=== PATIENT | male | born 1965 | race Caucasian/White ===

== ENCOUNTER 2017-11-09 14:53 | Outpatient (REF) | payer BC, SELFPAY ==
[2017-11-09 21:35] LABS: ALT 62 U/L (12-78); AST 57 U/L (15-37); Albumin 4.2 g/dL (3.4-5.0); Alkaline Phosphatase 119 U/L (46-116); Anion Gap 14.1 mmol/L (3-11); BUN 9 mg/dL (7-18); Bilirubin, Total 0.5 mg/dL (0.2-1.0); CO2 24.9 mmol/L (21.0-32.0); CREATININE 1.16 mg/dL (0.70-1.30); Calcium 8.6 mg/dL (8.5-10.1); Chloride 93 mmol/L (98-107); Glucose 96 mg/dL (70-100); Sodium 132 mmol/L (136-145); Total Protein 7.8 g/dL (6.4-8.2)
== END 2017-11-09 14:54 ==
LOC: NCHCN 14:53
PROVIDERS: PCP Nurse Practitioner Family; Visit Provider Physician Assistant Medical
DX: I10 Essential (primary) hypertension (principal); E87.1 Hypo-osmolality and hyponatremia; E78.1 Pure hyperglyceridemia
CPT/HCPCS: 80053; 83735; 84443

== ENCOUNTER 2018-07-05 00:17 | Outpatient (CLI) | payer BC, SELFPAY ==
--- NOTE | 2018-07-05 08:28 | DI.CT_ITS ---
SYMPTOMS/DIAGNOSIS: COUGH, R05, 30-PACK SMOKER CHEST CT: CT examination of the chest was performed utilizing the low dose lung cancer screening protocol. Images obtained through the upper abdomen show unremarkable appearance of visualized portions of the liver, spleen, kidneys, adrenals and pancreas. No significant intrapulmonary nodule identified. No significant mediastinal or hilar adenopathy. Tracheobronchial tree appears intact. No pleural effusions seen. No thoracic aortic aneurysm. CONCLUSION: No significant pulmonary nodule identified. Continue annual screening with LDCT in 12 months.
== END 2018-07-05 00:37 ==
PROVIDERS: PCP Nurse Practitioner Family; Visit Provider Nurse Practitioner Family
DX: R05 Cough (principal); Z87.891 Personal history of nicotine dependence
CPT/HCPCS: 71250

== ENCOUNTER 2018-07-05 02:22 | Outpatient (CLI) | payer BC, SELFPAY ==
[2018-07-05] MEDS: Albuterol HFA 18 GM 200 PUFF INH IH (09:21)
[2018-07-05] MEDS: Inhaler, Assist Device 1 EACH MC (09:21)
--- NOTE | 2018-07-05 10:00 | PFT_ITS ---
DATE OF SERVICE: 07/05/18 REQUESTING PROVIDER: Marleen Del Rio N.P. Spirometry shows no evidence of obstructive airways disease. No bronchodilator response. Lung volumes show no evidence of restriction. Diffusion capacity normal. Airways resistance normal. IMPRESSION: Overall normal pulmonary function study. Clinical correlation recommended. When this study was compared to the previous one from 08/04/14, the patient has a total of 140 cc decline in FVC. FEV1 has declined by 160 cc.
== END 2018-07-05 02:42 ==
PROVIDERS: PCP Nurse Practitioner Family; Visit Provider Nurse Practitioner Family
DX: R05 Cough (principal); F17.210 Nicotine dependence, cigarettes, uncomplicated
CPT/HCPCS: 94060; 94150; 94726; 94729

== ENCOUNTER 2018-09-15 10:05 | Emergency (ER) | payer BC, SELFPAY ==
[2018-09-15] VITALS (58 sets, daily range): BP systolic 139–171; BP diastolic 75–94; PULSE 87–123; RESP 14–30; TEMP 36.7; O2SAT 95–100
--- NOTE | 2018-09-15 10:16 | ED.GENADUL_ITS ---
Discharge Plan Disposition Patient Disposition: HOME Condition: Stable Discharge Details Chief Complaint: Dizzy/Sync Clinical Impression: Syncope, Tachycardia Primary Care Provider: Delaney Galindo V ED Provider: Evelyn Orantes Home Meds and New Rx's Prescriptions: Continued aspirin [Aspir-81] 81 mg Tablet,Delayed Release (Dr/Ec) 81 mg PO DAILY RF: 0 triamterene-hydrochlorothiazid [Dyazide] 37.5-25 mg Capsule 12.5 - 50 cap PO DAILY RF: 0 omeprazole 20 mg Capsule,Delayed Release(Dr/Ec) 20 mg PO DAILY RF: 0 losartan 100 mg Tablet 100 mg PO DAILY RF: 0 Discharge Instructions Instructions: Dehydration (ED), Syncope (ED) Additional Instructions: Please return immediately to the emergency department if you develop any new or worsening symptoms or if you become otherwise concerned. It is extremely important that you call as soon as possible to make an appointment to be seen by your primary care doctor in follow-up for this visit. Please make sure that you are drinking plenty of fluids, and also that you cut down on your alcohol intake. Referrals: Delaney Galindo MD [Primary Care Provider] - Discharge Data Discharge Date/Time-TO BE ENTERED AT DEPARTURE: 09/15/18 16:23 Medical Decision Making Elijah Gupta is a 53-year-old man with history of hypertension, prediabetes, heavy alcohol use who presented to the emergency department with syncopal episode after coughing spell last night and lightheadedness this morning while driving. On exam patient is well and nontoxic appearing, somewhat volume depleted. He has fine bilateral lower lobe rales and otherwise benign cardiopulmonary exam. Concern for metabolic/electrolytic disturbance, dehydration, arrhythmia, other, less likely ACS, PE, doubt infectious etiology. Exam/history is not consistent with acute aortic pathology, CVA. Plan for EKG, CXR screening labs, telemetry, IV fluid hydration. Patient has low risk for PE by Wells criteria, will send d-dimer. Will monitor and reassess. Tachycardia somewhat improved after 1 L, will give second liter bolus. Labs nondiagnostic. Patient reports feeling improved after fluids, although heart rate still 100- 110. Plan for third liter concern for dehydration at least partially related to significant alcohol intake as cause of symptoms. After third liter fluids, patient reports that he feels back to baseline. He has walked throughout the emergency department several times without issue. Patient and his report that patient's heart rate is typically high: in the 90s while at rest. CXR not yet obtained, patient states that he feels back to baseline and is ready to leave, declines to have chest x-ray performed at this time. Patient's resting heart rate now in the 90s. Plan for cardiac event monitor. I discussed choice of event monitor with Dr. Bravo, monitor placed by respiratory therapy. I had a lengthy discussion with the patient regarding return to emergency department precautions, importance of outpatient follow-up, risks of alcohol use and importance of reducing alcohol consumption, and home care. Patient verbalized understanding of the plan was amenable. Patient was discharged home with clear plan for outpatient follow-up. All questions were answered. Medical Records Medical records reviewed: Yes I reviewed the patient's medical records. Lab Data Lab results reviewed: Yes I reviewed the patient's lab results. Laboratory Tests Range/Units 09/15/18 09/15/18 09/15/18 09:40 09:40 09:40 WBC (4.4-10.8) k/cumm 6.67 RBC (4.50-6.00) m/cumm 5.01 Hgb (13.5-17.5) g/dL 14.9 Hct (40.0-50.0) % 42.3 MCV (80-95) fL 84.4 MCH (27.0-33.0) pg 29.7 MCHC (32.0-36.0) g/dL 35.2 RDW (11.8-14.1) % 14.9 H Plt Count (130-400) x1000/uL 228 MPV (8.0-11.0) fL 9.1 Immature Gran % 0.3 Neutrophils % 70.8 Lymphocytes % 18.4 Monocytes % 9.4 Eosinophils % 1.0 Basophils % 0.1 Absolute Neutrophils (1.2-6.7) k/cumm 4.71 Absolute Lymphocytes (1.2-3.4) k/cumm 1.23 Absolute Monocytes (0.11-0.7) k/cumm 0.63 Absolute Eosinophils (0.0-0.7) k/cumm 0.07 Absolute Basophils (0.0-0.2) k/cumm 0.01 D-Dimer (<500) ng/mlFEU 313 Sodium (136-145) mmol/L 132 L Potassium (3.5-5.1) mmol/L 3.5 Chloride (98-107) mmol/L 95 L Carbon Dioxide (21.0-32.0) mmol/L 23.3 Anion Gap (3-11) mmol/L 13.7 H BUN (7-18) mg/dL 7 Creatinine (0.70-1.30) mg/dL 1.17 Estimated GFR/1.73 m2 (mL/min/1.73m2) >= 60.00 Glucose (70-100) mg/dL 124 H Lactate (0.6-1.4) mmol/l Calcium (8.5-10.1) mg/dL 9.0 Magnesium (1.8-2.4) mg/dL 2.0 Total Bilirubin (0.2-1.0) mg/dL 0.5 AST (15-37) U/L 32 ALT (12-78) U/L 48 Alkaline Phosphatase (46-116) U/L 174 H Troponin I (0.00-0.06) ng/mL < 0.02 NT-Pro-B Natriuret Pep ( - 299) pg/mL Total Protein (6.4-8.2) g/dL 7.8 Albumin (3.4-5.0) g/dL 4.2 TSH (0.358-3.74) uIU/mL 2.58 Urine Color (Yellow) Urine Clarity Urine pH (5-8) Ur Specific [place] (1.005-1.025) Urine Protein (Negative) mg/dL Urine Ketones (Negative) mg/dL Urine Blood (Negative) Urine Nitrite (Negative) Urine Bilirubin (Negative) Urine Urobilinogen (Up TO 0.2) EU/dL Ur Leukocyte Esterase (Negative) Urine Glucose (Negative) mg/dL Range/Units 09/15/18 09/15/18 09/15/18 09:40 09:40 11:58 WBC (4.4-10.8) k/cumm RBC (4.50-6.00) m/cumm Hgb (13.5-17.5) g/dL Hct (40.0-50.0) % MCV (80-95) fL MCH (27.0-33.0) pg MCHC (32.0-36.0) g/dL RDW (11.8-14.1) % Plt Count (130-400) x1000/uL MPV (8.0-11.0) fL Immature Gran % Neutrophils % Lymphocytes % Monocytes % Eosinophils % Basophils % Absolute Neutrophils (1.2-6.7) k/cumm Absolute Lymphocytes (1.2-3.4) k/cumm Absolute Monocytes (0.11-0.7) k/cumm Absolute Eosinophils (0.0-0.7) k/cumm Absolute Basophils (0.0-0.2) k/cumm D-Dimer (<500) ng/mlFEU Sodium (136-145) mmol/L Potassium (3.5-5.1) mmol/L Chloride (98-107) mmol/L Carbon Dioxide (21.0-32.0) mmol/L Anion Gap (3-11) mmol/L BUN (7-18) mg/dL Creatinine (0.70-1.30) mg/dL Estimated GFR/1.73 m2 (mL/min/1.73m2) Glucose (70-100) mg/dL Lactate (0.6-1.4) mmol/l 1.8 H Calcium (8.5-10.1) mg/dL Magnesium (1.8-2.4) mg/dL Total Bilirubin (0.2-1.0) mg/dL AST (15-37) U/L ALT (12-78) U/L Alkaline Phosphatase (46-116) U/L Troponin I (0.00-0.06) ng/mL NT-Pro-B Natriuret Pep ( - 299) pg/mL 40 Total Protein (6.4-8.2) g/dL Albumin (3.4-5.0) g/dL TSH (0.358-3.74) uIU/mL Urine Color (Yellow) Yellow Urine Clarity Clear Urine pH (5-8) 7.0 Ur Specific [place] (1.005-1.025) 1.010 Urine Protein (Negative) mg/dL Negative Urine Ketones (Negative) mg/dL Negative Urine Blood (Negative) Negative Urine Nitrite (Negative) Negative Urine Bilirubin (Negative) Negative Urine Urobilinogen (Up TO 0.2) EU/dL 0.2 Ur Leukocyte Esterase (Negative) Negative Urine Glucose (Negative) mg/dL Negative Range/Units 09/15/18 13:51 WBC (4.4-10.8) k/cumm RBC (4.50-6.00) m/cumm Hgb (13.5-17.5) g/dL Hct (40.0-50.0) % MCV (80-95) fL MCH (27.0-33.0) pg MCHC (32.0-36.0) g/dL RDW (11.8-14.1) % Plt Count (130-400) x1000/uL MPV (8.0-11.0) fL Immature Gran % Neutrophils % Lymphocytes % Monocytes % Eosinophils % Basophils % Absolute Neutrophils (1.2-6.7) k/cumm Absolute Lymphocytes (1.2-3.4) k/cumm Absolute Monocytes (0.11-0.7) k/cumm Absolute Eosinophils (0.0-0.7) k/cumm Absolute Basophils (0.0-0.2) k/cumm D-Dimer (<500) ng/mlFEU Sodium (136-145) mmol/L Potassium (3.5-5.1) mmol/L Chloride (98-107) mmol/L Carbon Dioxide (21.0-32.0) mmol/L Anion Gap (3-11) mmol/L BUN (7-18) mg/dL Creatinine (0.70-1.30) mg/dL Estimated GFR/1.73 m2 (mL/min/1.73m2) Glucose (70-100) mg/dL Lactate (0.6-1.4) mmol/l Calcium (8.5-10.1) mg/dL Magnesium (1.8-2.4) mg/dL Total Bilirubin (0.2-1.0) mg/dL AST (15-37) U/L ALT (12-78) U/L Alkaline Phosphatase (46-116) U/L Troponin I (0.00-0.06) ng/mL < 0.02 NT-Pro-B Natriuret Pep ( - 299) pg/mL Total Protein (6.4-8.2) g/dL Albumin (3.4-5.0) g/dL TSH (0.358-3.74) uIU/mL Urine Color (Yellow) Urine Clarity Urine pH (5-8) Ur Specific [place] (1.005-1.025) Urine Protein (Negative) mg/dL Urine Ketones (Negative) mg/dL Urine Blood (Negative) Urine Nitrite (Negative) Urine Bilirubin (Negative) Urine Urobilinogen (Up TO 0.2) EU/dL Ur Leukocyte Esterase (Negative) Urine Glucose (Negative) mg/dL ECG Data Attestation: I personally reviewed and interpreted this ECG (s) as follows: Interpretation: EKG shows sinus tachycardia at 114, normal axis, no acute ischemic changes, nondiagnostic EKG HPI General Mode of arrival: ambulatory . Date/Time Provider Initiated Documentation: 09/15/18 10:15 . Limitations to Documentation: no limitations . Information obtained by: patient, family, RN notes reviewed and old records reviewed . HPI Narrative: Elijah Gupta is a 53 y/o man with history of hypertension, prediabetes, heavy alcohol use presenting to the emergency department with syncope. Patient reports that he has been well in his usual state of health. He reports that he had a significant coughing spell last night, and felt that he could not get air in at the end of the coughing spell, and fainted. Patient reports that loss of consciousness was brief, he did not hit his head, and there was no injury. Patient reports that he was well in his usual state of health this morning. He was driving to work when he fell suddenly very lightheaded. 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 Patient reports that episode lasted several minutes, but he did not lose consciousness. During that time he felt nauseous but did not have other symptoms. He denies any new pain, any new shortness of breath, or any new cough (has chronic cough secondary to smoking), no vomiting, no numbness/weakness the extremities, and has chronic mild diarrhea that is unchanged. He reports that he has been eating and drinking as usual, and tries to stay hydrated. He reports that he drinks at least a sixpack of beer every day. He denies drug use. Related Data Home Medications Medication Instructions Recorded Confirmed aspirin [Aspir-81] 81 mg PO DAILY 09/15/18 09/15/18 losartan 100 mg PO DAILY 09/15/18 09/15/18 omeprazole 20 mg PO DAILY 09/15/18 09/15/18 triamterene-hydrochlorothiazid 12.5 - 50 cap PO DAILY 09/15/18 09/15/18 [Dyazide] Allergies Allergy/AdvReac Type Severity Reaction Status Date / Time No Known Allergies Allergy Unverified 09/15/18 10:19 General Stated Complaint: Dizzy/Sync MARLIN: 2 Review of Systems Review of Systems Constitutional: denies fevers Eyes: denies eye pain ENT: denies facial pain, dental pain, sore throat Cardiovascular: denies chest pain, edema, reports lightheadedness and syncopal episode Respiratory: Reports chronic mild SOB, chronic cough GI: denies abdominal pain, vomiting, diarrhea : denies flank pain MSK: denies back pain, neck pain, arthralgias, myalgias Skin: denies rash Neuro: denies headaches, numbness, weakness, vertigo PFSH Social History Smoking/Tobacco Use Status: Current every day Tobacco Type: cigarettes Alcohol Intake: current Alcohol Intake frequency: 0-2 drinks per day Alcohol type: beer Drug use: Never Substance use type: does not use Do you feel safe at home: Yes Do you feel safe in your relationship?: Yes Exam Narrative Exam Narrative: Constitutional: well and [id number], pleasant, conversing normally HENT: head atraumatic/normocephalic/normal inspection, mucous membranes somewhat dry Eyes: conjunctiva normal, sclera normal, pupils 3mm b/l Neck: no stridor, normal ROM, trachea midline Chest: normal inspection Resp: normal work of breathing, fine rales bilateral lower lobes Cardio: Tachycardic rate, normal rhythm, no murmur appreciated GI: abdomen soft, non-tender, non-distended Back: normal inspection, no rash Skin: warm, dry, normal color, no rash Neuro: alert, not altered, grossly non-focal, normal tone Ext: Trace edema bilateral ankles, no posterior calf tenderness to palpation, moving all extremities equally Psych: normal mood, normal affect, normal behavior Course Vital Signs Pulse 115 H 09/15/18 10:13 Respiratory Rate 21 09/15/18 10:13 Blood Pressure 171/91 H 09/15/18 10:13 Pulse Oximetry 97 09/15/18 10:13 Temperature Source Oral 09/15/18 10:13 Pulse 115 H 09/15/18 10:13 Respiratory Rate 21 09/15/18 10:13 Blood Pressure 171/91 H 09/15/18 10:13 Blood Pressure Position Sitting 09/15/18 10:13 Pulse Oximetry 97 09/15/18 10:13 Oxygen Delivery Method Room Air 09/15/18 10:13 Oxygen Flow Rate 0 09/15/18 10:13 Pain Level 0 09/15/18 10:13
[2018-09-15 10:57] LABS: Lactate-non-spesis 1.8 mmol/l (0.6-1.4)
[2018-09-15 11:00] LABS: HCT 42.3 % (40.0-50.0); HGB 14.9 g/dL (13.5-17.5); Mean Corpuscular Volume 84.4 fL (80-95); RBC 5.01 m/cumm (4.50-6.00); White Blood Cell Count 6.67 k/cumm (4.4-10.8)
[2018-09-15 11:01] LABS: Abs Immature Grans 0.02 k/cumm (0.0-0.09); Absolute Basophil Count 0.01 k/cumm (0.0-0.2); Absolute Eosinophil Count 0.07 k/cumm (0.0-0.7); Absolute Lymphocyte Count 1.23 k/cumm (1.2-3.4); Absolute Monocyte Count 0.63 k/cumm (0.11-0.7); Absolute Neutrophil Count 4.71 k/cumm (1.2-6.7); Basophils % 0.1; Immature Grans % 0.3; Lymphocytes % 18.4; Mean Corp. HGB Concentration 35.2 g/dL (32.0-36.0); Mean Corpuscular Hemoglobin 29.7 pg (27.0-33.0); Mean Platelet Volume 9.1 fL (8.0-11.0); Monocytes % 9.4; Neutrophils % 70.8; Platelet Count 228 x1000/uL (130-400); RBC Distribution Width 14.9 % (11.8-14.1)
[2018-09-15 11:26] LABS: ALT 48 U/L (12-78); AST 32 U/L (15-37); Albumin 4.2 g/dL (3.4-5.0); Alkaline Phosphatase 174 U/L (46-116); Anion Gap 13.7 mmol/L (3-11); BUN 7 mg/dL (7-18); Bilirubin, Total 0.5 mg/dL (0.2-1.0); CO2 23.3 mmol/L (21.0-32.0); CREATININE 1.17 mg/dL (0.70-1.30); Chloride 95 mmol/L (98-107); Glucose 124 mg/dL (70-100); Potassium 3.5 mmol/L (3.5-5.1); Sodium 132 mmol/L (136-145); TSH 2.58 uIU/mL (0.358-3.74); Total Protein 7.8 g/dL (6.4-8.2)
[2018-09-15 11:38] LABS: Troponin I < 0.02 ng/mL (0.00-0.06)
[2018-09-15 11:46] LABS: D-Dimer 313 ng/mlFEU (<500)
[2018-09-15 12:12] LABS: Bilirubin Negative (Negative); Blood Negative (Negative); Clarity Clear; Glucose Negative (Negative); Ketones Negative (Negative); Leukocyte Esterase Negative (Negative); Nitrite Negative (Negative); Urobilinogen 0.2 EU/dL (Up TO 0.2)
[2018-09-15] MEDS: Magnesium Oxide 400 MG TAB PO (12:52)
[2018-09-15] MEDS: Normal Saline 1,000 ML 1000 ML IV ×2 (12:53→15:18)
[2018-09-15 13:38] LABS: NT-proBNP 40 pg/mL
[2018-09-15 14:17] LABS: Troponin I < 0.02 ng/mL (0.00-0.06)
--- NOTE | 2018-10-20 12:20 | CER_ITS ---
PREVENTICE REPORT DATE OF INTERPRETATION: October 20, 2018 STUDY INDICATIONS: Syncope. REQUESTING PROVIDER: Delaney Galindo M.D. FINDINGS: The patient was monitored for 25 days and 14 hours. The baseline rhythm was sinus tachycardia. Average heart rate 98 bpm, range 63-111 bpm. Occasional ventricular ectopy, 1% of total beats. No ventricular tachycardia. No pauses greater than 3 seconds. No high degree heart block. One patient event which correlated with sinus tachycardia. FINAL INTERPRETATION: No significant arrhythmias.
== END 2018-09-15 16:23 | disposition home or self-care (01) ==
PROVIDERS: Emergency Provider Student in an Organized Health Care Education/Training Program; PCP Family Medicine
DX: R55 Syncope and collapse (principal); R00.0 Tachycardia, unspecified; E86.0 Dehydration; I10 Essential (primary) hypertension
CPT/HCPCS: 36415; 80053; 93005; 93270; 96360; 96361; 99284; 81003; 83605; 83735; 83880; 84443; 84484; 85025; 85379; 93010

== ENCOUNTER 2018-11-25 01:02 | Outpatient (CLI) | payer BC, SELFPAY ==
--- NOTE | 2018-11-25 14:10 | MERGE_ITS ---
*[facility]* *[facility]* [address] [place] [address] Date of study: 11/25/2018 Transthoracic Echocardiography M-mode, complete 2D, complete spectral Doppler, and color Doppler *STUDY CONCLUSIONS* Summary: 1. Left ventricle: Systolic function was normal. The estimated ejection fraction was 60-65%. Wall motion was normal; there were no regional wall motion abnormalities. 2. Aortic root: The aortic root was at upper normal limits. 3. Ascending aorta: The ascending aorta was at upper normal limits. 4. Right ventricle: The cavity size was at the upper limits of normal. Systolic function was low normal. 5. Pulmonary arteries: Pulmonary systolic pressure was mildly increased. PA peak pressure: 39mm Hg (S). *PATIENT PRESENTATION* Height: 175.3cm (69in ) S/D Pressure: 142 / 80 Weight: 88.9kg (195.6lb ) BSA: 2.1m^2 Test start time: 02:20 PM. Test stop time: 03:10 PM. CONSULTING Delaney Galindo V ORDERING Delaney Galindo V REFERRING Delaney Galindo V PERFORMING Unknown PERFORMING [facility] [employer] RT Nikolay Gilmore)URIAH (CT) *PROCEDURE DATA* Procedure information: This study was interpreted by [facility]. Pertinent images and digital data are archived for permanent storage and are available for subsequent review. No prior study was available for comparison. Study status: Routine. Transthoracic echocardiography. M-mode, complete 2D, complete spectral Doppler, and color Doppler. A Transthoracic Echocardiogram was performed. Scanning was performed from the parasternal, apical, subcostal, and suprasternal notch acoustic windows. Images were obtained using an [id number] cardiac ultrasound machine. Image quality was fair. Study completion: The patient tolerated the procedure well. History: PMH: Hx of syncope z86.79. *CARDIAC ANATOMY* Left ventricle: Systolic function was normal. The estimated ejection fraction was 60-65%. Wall motion was normal; there were no regional wall motion abnormalities. Aortic valve: Doppler: VTI ratio of LVOT to aortic valve: 0.73. Valve area (VTI): 2.1cm^2. Indexed valve area (VTI): 1cm^2/m^2. Peak velocity ratio of LVOT to aortic valve: 0.72. Valve area (Vmax): 2.1cm^2. Indexed valve area (Vmax): 1cm^2/m^2. Mean velocity ratio of LVOT to aortic valve: 0.8. Valve area (Vmean): 2.3cm^2. Indexed valve area (Vmean): 1.1cm^2/m^2. Mean gradient (S): 4.5mm Hg. Peak gradient (S): 8mm Hg. Aorta: Aortic root: The aortic root was at upper normal limits. Ascending aorta: The ascending aorta was at upper normal limits. Mitral valve: Mildly thickened leaflets. Doppler: There was trivial regurgitation. Valve area by pressure half-time: 4.4cm^2. Indexed valve area by pressure half-time: 2.1cm^2/m^2. Peak gradient (D): 2.2mm Hg. Right ventricle: The cavity size was at the upper limits of normal. Systolic function was low normal. Pulmonic valve: Doppler: Peak gradient (S): 4.8mm Hg. Pulmonary artery: Pulmonary systolic pressure was mildly increased. Pericardium: A prominent pericardial fat pad was present. Systemic veins: Inferior vena cava: Well visualized. The vessel was patent and normal in size. The respirophasic diameter changes were in the normal range (greater than or equal to 50%), consistent with normal central venous pressure. Baseline ECG: Normal sinus rhythm. Measurements Left ventricle Value Reference LV ID, ED, PLAX 4.4 cm 3.5 - 6.0 LV ID, ES, PLAX 3.0 cm 2.1 - 4.0 LV PW thickness, ED, PLAX 1.0 cm LV end-diastolic volume, 1-p A2C 99 ml LV ejection fraction, 1-p A2C 62 % LV end-diastolic volume, 1-p A4C 93 ml LV ejection fraction, 1-p A4C 60 % LV e', lateral 0.119 m/sec LV E/e', lateral 6 LV e', medial 0.08 m/sec LV E/e', medial 9 LV e', average 0.1 m/sec LV E/e', average 7 Ventricular septum Value Reference IVS thickness, ED, PLAX 0.8 cm LVOT Value Reference LVOT ID, A-P 1.9 cm LVOT area 2.9 cm^2 LVOT peak velocity, S 1.02 m/sec LVOT mean velocity, S 0.81 m/sec LVOT VTI, S 19.7 cm LVOT peak gradient, S 4.1 mm Hg LVOT mean gradient, S 2.8 mm Hg Stroke volume (SV), LVOT DP 57 ml Stroke index (SV/bsa), LVOT DP 27 ml/m^2 Aortic valve Value Reference Aortic valve peak velocity, S 1.4 m/sec Aortic valve mean velocity, S 1 m/sec Aortic valve VTI, S 27.0 cm Aortic mean gradient, S 4.5 mm Hg Aortic peak gradient, S 8 mm Hg VTI ratio, LVOT/AV 0.73 Aortic valve area, VTI 2.1 cm^2 Velocity ratio, peak, LVOT/AV 0.72 Aortic valve area, peak velocity 2.1 cm^2 Velocity ratio, mean, LVOT/AV 0.8 Aortic valve area, mean velocity 2.3 cm^2 Aortic valve area/bsa, mean velocity 1.1 cm^2/m^2 Aorta Value Reference Aortic root ID, ED 3.6 cm Ascending aorta ID, A-P, S 3.4 cm Left atrium Value Reference LA ID, A-P, ES 2.4 cm LA ID/bsa, A-P 1.1 cm/m^2 <=2.2 LA volume/bsa, ES, 1-p A4C 17 ml/m^2 LA volume, ES, 2-p 30 ml LA volume/bsa, ES, 2-p 14 ml/m^2 LA/aortic root ratio 0.66 Mitral valve Value Reference Mitral E-wave peak velocity 0.75 m/sec Mitral A-wave peak velocity 0.88 m/sec Mitral deceleration time 171 ms 150 - 230 Mitral pressure half-time 50 ms Mitral peak gradient, D 2.2 mm Hg Mitral E/A ratio, peak 0.85 Mitral valve area, PHT, DP 4.4 cm^2 Pulmonary arteries Value Reference PA pressure, S, DP (H) 39 mm Hg <=30 Tricuspid valve Value Reference Tricuspid regurg peak velocity 2.9 m/sec Tricuspid peak RV-RA gradient 34 mm Hg Right atrium Value Reference RA area, ES, A4C 12.4 cm^2 8.3 - 19.5 Systemic veins Value Reference Estimated CVP 10 mm Hg Right ventricle Value Reference RV pressure, S, DP (H) 44 mm Hg <=30 Pulmonic valve Value Reference Pulmonic peak gradient, S 4.8 mm Hg Legend: (L) and (H) edd values outside specified reference range. I have personally reviewed the images and have reviewed and edited the reported findings. Electronically signed by Roney Colbert 11/28/2018 13:51
== END 2018-11-25 01:22 ==
PROVIDERS: PCP Family Medicine; Visit Provider Family Medicine
DX: R55 Syncope and collapse (principal); I27.0 Primary pulmonary hypertension; I50.1 Left ventricular failure, unspecified
CPT/HCPCS: 93306

== ENCOUNTER 2018-12-14 15:40 | Outpatient (REF) | payer BC, SELFPAY ==
[2018-12-14 22:00] LABS: ALT 30 U/L (16-63); AST 18 U/L (15-37); Alkaline Phosphatase 187 U/L (46-116); Anion Gap 12.5 mmol/L (3-11); BUN 8 mg/dL (7-18); Bilirubin, Total 0.4 mg/dL (0.2-1.0); CO2 25.5 mmol/L (21.0-32.0); CREATININE 1.01 mg/dL (0.70-1.30); Calcium 9.1 mg/dL (8.5-10.1); Calculated LDL 172 mg/dL; Chloride 102 mmol/L (98-107); Cholesterol 241 mg/dL (50-200); Glucose 112 mg/dL (70-100); HDL Cholesterol 26 mg/dL (40-60); Potassium 4.3 mmol/L (3.5-5.1); Sodium 140 mmol/L (136-145); Total Protein 7.4 g/dL (6.4-8.2); Triglyceride 217 mg/dL (30-150)
[2018-12-14 22:05] LABS: ESR 9 mm/hr (1-20)
[2018-12-14 22:13] LABS: Hemoglobin A1C 6.3 % (4.5-6.2)
== END 2018-12-14 16:00 ==
LOC: NCHCN 15:40
PROVIDERS: PCP Family Medicine; Visit Provider Family Medicine
DX: I10 Essential (primary) hypertension (principal); F10.10 Alcohol abuse, uncomplicated; F17.209 Nicotine dependence, unspecified, with unspecified nicotine-induced disorders; Z86.79 Personal history of other diseases of the circulatory system
CPT/HCPCS: 80053; 80061; 85652; 83036

== ENCOUNTER 2019-06-24 07:55 | Outpatient (REF) | payer BC, SELFPAY ==
[2019-06-24 18:55] LABS: ALT 32 U/L (16-63); AST 20 U/L (15-37); Alkaline Phosphatase 143 U/L (46-116); Anion Gap 12.4 mmol/L (3-11); BUN 16 mg/dL (7-18); Bilirubin, Total 0.3 mg/dL (0.2-1.0); CO2 23.6 mmol/L (21.0-32.0); CREATININE 1.03 mg/dL (0.70-1.30); Calcium 8.8 mg/dL (8.5-10.1); Calculated LDL 108 mg/dL (<100); Chloride 103 mmol/L (98-107); Cholesterol 179 mg/dL (<200); Glucose 115 mg/dL (74-106); HDL Cholesterol 26 mg/dL (40-60); Potassium 4.5 mmol/L (3.5-5.1); Sodium 139 mmol/L (136-145); Total Protein 7.3 g/dL (6.4-8.2); Triglyceride 226 mg/dL (<150)
[2019-06-24 19:14] LABS: Hemoglobin A1C 6.4 % (3.8-5.6)
[2019-06-27 11:22] LABS: PSA, Screening 2.5 ng/mL (0.0-3.5)
== END 2019-06-24 08:15 ==
LOC: NCHCN 07:55
PROVIDERS: PCP Family Medicine; Visit Provider Family Medicine
DX: Z00.00 Encounter for general adult medical examination without abnormal findings (principal); Z13.1 Encounter for screening for diabetes mellitus; Z13.228 Encounter for screening for other metabolic disorders; Z13.220 Encounter for screening for lipoid disorders; Z12.5 Encounter for screening for malignant neoplasm of prostate
CPT/HCPCS: 80053; 80061; 84153; 83036

== ENCOUNTER 2020-05-01 09:46 | Outpatient (REF) | payer BC, SELFPAY ==
[2020-05-01 16:18] LABS: ALT 43 U/L (16-63); AST 22 U/L (15-37); Albumin 4.1 g/dL (3.4-5.0); Alkaline Phosphatase 131 U/L (46-116); Anion Gap 8.8 mmol/L (3-11); BUN 13 mg/dL (7-18); Bilirubin, Total 0.3 mg/dL (0.2-1.0); CO2 26.2 mmol/L (21.0-32.0); CREATININE 1.13 mg/dL (0.70-1.30); Calcium 9.1 mg/dL (8.5-10.1); Calculated LDL 125 mg/dL (<100); Chloride 103 mmol/L (98-107); Cholesterol 190 mg/dL (<200); Glucose 111 mg/dL (74-106); HDL Cholesterol 29 mg/dL (40-60); Potassium 4.4 mmol/L (3.5-5.1); Sodium 138 mmol/L (136-145); Total Protein 7.4 g/dL (6.4-8.2); Triglyceride 181 mg/dL (<150)
[2020-05-01 17:48] LABS: Hemoglobin A1C 6.4 % (<5.7)
== END 2020-05-01 10:06 ==
LOC: NCHCN 09:46
PROVIDERS: PCP Family Medicine; Visit Provider Physician Assistant Medical
DX: E78.5 Hyperlipidemia, unspecified (principal); R73.03 Prediabetes; I10 Essential (primary) hypertension
CPT/HCPCS: 80053; 80061; 83036

== ENCOUNTER 2021-04-30 17:08 | Outpatient (REF) | payer BC, SELFPAY ==
[2021-05-02 13:29] LABS: COVID-19 RT-PCR UVMMC Result Negative (Negative)
== END 2021-04-30 17:09 | disposition home or self-care (01) ==
LOC: NCHCN 17:08
PROVIDERS: PCP Family Medicine; Visit Provider Family Medicine
DX: Z20.822 Contact with and (suspected) exposure to COVID-19 (principal)
CPT/HCPCS: U0003

== ENCOUNTER 2021-08-22 12:38 | Outpatient (REF) | payer BC, SELFPAY ==
[2021-08-22 16:01] LABS: ALT 51 U/L (16-63); AST 24 U/L (15-37); Albumin 4.5 g/dL (3.4-5.0); Alkaline Phosphatase 113 U/L (46-116); Anion Gap 10.6 mmol/L (3-11); BUN 8 mg/dL (7-18); Bilirubin, Total 0.4 mg/dL (0.2-1.0); CO2 29.4 mmol/L (21.0-32.0); Calcium 9.4 mg/dL (8.5-10.1); Calculated LDL 100 mg/dL (<100); Chloride 101 mmol/L (98-107); Cholesterol 182 mg/dL (<200); Glucose 87 mg/dL (74-106); HDL Cholesterol 31 mg/dL (40-60); Potassium 4.4 mmol/L (3.5-5.1); Sodium 141 mmol/L (136-145); Total Protein 7.5 g/dL (6.4-8.2); Triglyceride 258 mg/dL (<150)
== END 2021-08-22 12:39 | disposition home or self-care (01) ==
LOC: NCHCN 12:38
PROVIDERS: PCP Family Medicine; Visit Provider Family Medicine
DX: Z00.00 Encounter for general adult medical examination without abnormal findings (principal); E78.5 Hyperlipidemia, unspecified; I10 Essential (primary) hypertension
CPT/HCPCS: 80053; 80061

== ENCOUNTER 2022-08-26 15:52 | Outpatient (REF) | payer BC, SELFPAY ==
[2022-08-26 15:53] LABS: ALT 36 U/L (16-63); AST 25 U/L (15-37); Albumin 4.3 g/dL (3.4-5.0); Alkaline Phosphatase 112 U/L (46-116); Anion Gap 10.8 mmol/L (3-11); BUN 11 mg/dL (7-18); Bilirubin, Total 0.4 mg/dL (0.2-1.0); CO2 27.2 mmol/L (21.0-32.0); CREATININE 1.2 mg/dL (0.70-1.30); Calcium 9.2 mg/dL (8.5-10.1); Chloride 98 mmol/L (98-107); Glucose 109 mg/dL (74-106); Potassium 4.2 mmol/L (3.5-5.1); Sodium 136 mmol/L (136-145); Total Protein 7.8 g/dL (6.4-8.2)
[2022-08-26 15:58] LABS: Hemoglobin A1C 5.9 % (<5.7)
[2022-08-26 17:20] LABS: Vitamin D 25 Total 58.5 ng/mL (30-100)
[2022-08-27 20:39] LABS: PSA, Screening 2.3 ng/mL (<=3.5)
== END 2022-08-26 15:53 | disposition home or self-care (01) ==
LOC: NCHCN 15:52
PROVIDERS: PCP Family Medicine; Visit Provider Family Medicine
DX: E78.5 Hyperlipidemia, unspecified (principal); R73.03 Prediabetes; Z00.00 Encounter for general adult medical examination without abnormal findings; Z12.5 Encounter for screening for malignant neoplasm of prostate; I10 Essential (primary) hypertension; Z79.899 Other long term (current) drug therapy
CPT/HCPCS: 80053; 82306; 84153; 83036

== ENCOUNTER 2023-09-01 11:57 | Outpatient (REF) | payer BC, SELFPAY ==
[2023-09-01 16:33] LABS: ALT 41 U/L (16-63); AST 29 U/L (15-37); Albumin 4.4 g/dL (3.4-5.0); Alkaline Phosphatase 113 U/L (46-116); Anion Gap 13.2 mmol/L (3-11); BUN 8 mg/dL (7-18); Bilirubin, Total 0.5 mg/dL (0.2-1.0); CO2 24.8 mmol/L (21.0-32.0); CREATININE 1.1 mg/dL (0.70-1.30); Calcium 9.2 mg/dL (8.5-10.1); Chloride 100 mmol/L (98-107); Estimated GFR 77.33 (mL/min/1.73m2); Glucose 112 mg/dL (74-106); Potassium 4.2 mmol/L (3.5-5.1); Sodium 138 mmol/L (136-145); Total Protein 7.8 g/dL (6.4-8.2)
[2023-09-01 22:40] LABS: PSA, Screening 2.5 ng/mL (<=3.5)
== END 2023-09-01 11:58 | disposition home or self-care (01) ==
LOC: NCHCN 11:57
PROVIDERS: PCP Family Medicine; Visit Provider Family Medicine
DX: I10 Essential (primary) hypertension (principal); Z12.5 Encounter for screening for malignant neoplasm of prostate
CPT/HCPCS: 80053; 84153

== ENCOUNTER 2024-12-13 15:09 | Outpatient (REF) | payer BC, SELFPAY ==
[2024-12-13 15:42] LABS: Hemoglobin A1C 6.2 % (<5.7)
[2024-12-13 18:20] LABS: ALT 38 U/L (16-63); AST 28 U/L (15-37); Albumin 4.2 g/dL (3.4-5.0); Alkaline Phosphatase 99 U/L (46-116); Anion Gap 12.4 mmol/L (3-11); BUN 6 mg/dL (7-18); Bilirubin, Total 0.4 mg/dL (0.2-1.0); CO2 24.6 mmol/L (21.0-32.0); Calcium 9.0 mg/dL (8.5-10.1); Calculated LDL 91 mg/dL (<100); Chloride 99 mmol/L (98-107); Cholesterol 157 mg/dL (<200); Estimated GFR 97.78 (mL/min/1.73m2); Glucose 112 mg/dL (74-106); HDL Cholesterol 30 mg/dL (>or=40); Magnesium 2.0 mg/dL (1.8-2.4); Potassium 3.9 mmol/L (3.5-5.1); Sodium 136 mmol/L (136-145); Total Protein 7.5 g/dL (6.4-8.2); Triglyceride 183 mg/dL (<150)
[2024-12-13 22:21] LABS: PSA, Screening 2.6 ng/mL (<=4.5)
== END 2024-12-13 15:10 | disposition home or self-care (01) ==
LOC: NCHCN 15:09
PROVIDERS: PCP Family Medicine; Visit Provider Family Medicine
DX: I10 Essential (primary) hypertension (principal); E78.5 Hyperlipidemia, unspecified; R73.03 Prediabetes; K21.9 Gastro-esophageal reflux disease without esophagitis; Z12.5 Encounter for screening for malignant neoplasm of prostate
CPT/HCPCS: 80053; 80061; 84153; 83036; 83735

== ENCOUNTER → 2025-02-02 03:46 | Outpatient (CLI) | payer BC, SELFPAY ==
--- NOTE | 2025-02-02 | DI.NM_ITS ---
APPROVED REPORT Exam: Exercise Treadmill Patient Location: Out-Patient Room/Bed: Stress Nurse: Laurel Marquez RN Ordering Provider:ABELARDO ARRON, Contact Number: [phone] BMI: 34.13 Baseline Rhythm: Sinus Rhythm, PVC's Indications: ventricular bigeminy Medical History Medical History: anxiety disorder, HLD, GERD, prediabetes, nicotine dependence Cardiac Medications: losartan, metoprolol succinate, omeprazole, rosuvastatin, triamterene-hydrochlorothiazide Allergies: lisinopril Cardiac Risk Factors: prediabetes, HTN, HLD, smoker Previous Cardiac Procedures: n/a Pretest Chest Pain Characteristics: No chest pain Exercise History: Indeterminate Physical Disabilities: n/a Lung Sounds: Clear to auscultation Heart Sounds: Irregular Stress Test Details Test: Exercise stress testing was performed using a Magdiel protocol. Nuclear Acquisition: Rest Tc-99m/Stress Tc-99m 1 day Rest Isotope: Tc-99m Sestamibi. Dose: 10.0 Date: 02/02/2025 Injection Time: 0850 Stress Isotope: Tc-99m Sestamibi. Dose: 30.0 Date: 02/02/2025 Injection Time: 1015 HR Resting HR Supine: 101 bpm Max Heart Rate (APMHR): 160 bpm Resting HR Standin bpm Target HR (85% APMHR): 136 bpm Max HR Achieved: 160 bpm % of APMHR: 100 Recovery HR: 109 bpm HR response to stress: Normal HR response to stress BP Resting BP Supine: 136/80 mmHg Resting BP Standin/90 mmHg Max BP: 198/60 mmHg Recovery BP: 126/68 mmHg BP response to stress: Normal blood pressure response to stress. ECG Resting ECG: Sinus Tachycardia, Ventricular bigeminy Ectopy: PVCs, couplets Stress ECG: Sinus Tachycardia ST Change: No significant ST segment changes noted Arrhythmia: occasional PVCs Recovery ECG: Sinus Tachycardia, Ventricular bigeminy Recovery ST Change: No significant ST segment changes noted Recovery Arrhythmia: occasional PVCs Clinical Reason for Termination: Target HR Achieved Stress Symptoms: Dyspnea Exercise duration: 06 min35 sec Highest Stage Reached: Stage 2: 2.5 mph at 12% grade. Exercise capacity: 7.95 METs Angina Score: None Mccarthy Treadmill Score: 6.4 Rate Pressure Product: [id number] Stress ECG Conclusion 1. Resting electrocardiogram was normal 2. Patient exercised on the Magdiel protocol and completed workload of 8 METS 3. Normal heart rate and blood pressure response to exercise. The patient achieved 100% of maximal predicted heart rate for age 4. There was no electrocardiographic evidence of myocardial ischemia 5. Premature ventricular contractions were noted at rest and in recovery, but none during exercise 6. See MPI report Mccarthy Treadmill Score is 6.4 which is Low risk. Stress Test Summary STAGE Time (mins) Speed (mph) Grade (%) HR BP SpO2 SYMPTOMS METS Supine 101 136/80 95 Standing 117 140/90 1 3 1.7 10 141 178/80 94 mild SOB 4.5 2 6 2.5 12 152 198/60 mod SOB 7 3 9 3.4 14 160 10 1 min recovery 145 188/56 93 3 min recovery 119 168/68 94 6 min recovery 109 126/68 95 Test was stopped when pt reached max HR. Pt c/o moderate SOB during exercise, recovered by end of test. Pt left ambulatory in no acute distress. MPI Conclusion Myocardial perfusion is normal. There is no ischemia or evidence of prior infarction Ejection fraction is 55% with normal wall motion
== END ==
PROVIDERS: PCP Family Medicine; Visit Provider Family Medicine
DX: I49.8 Other specified cardiac arrhythmias (principal)
CPT/HCPCS: 78452; 93017

== ENCOUNTER 2025-03-03 02:23 | Outpatient (CLI) | payer BC, SELFPAY ==
[2025-03-03] MEDS: Levalbuterol HFA 15 GM INH 4 PUFF IH (08:51)
[2025-03-03] MEDS: Inhaler, Assist Device 1 EACH MC (08:51)
--- NOTE | 2025-03-06 12:56 | W.PFT ---
Date of service: 03/03/25 Time of Service: 07:59 Pulmonary Function Test Result Indications: Pulmonary nodules, dyspnea Impression 1. Good patient effort was noted. ATS standards for reproducibility were met. 2. Spirometry showed mild obstructive lung disease with an FEV1 of 89% (2.85 L) 3. Following the administration of a bronchodilator there was not a significant response 4. TLC was normal. No evidence of restrictive lung disease 5. DLCO was normal at 86% predicted
== END 2025-03-03 02:24 | disposition home or self-care (01) ==
LOC: RT 02:23
PROVIDERS: PCP Family Medicine; Visit Provider Internal Medicine Pulmonary Disease
DX: R91.8 Other nonspecific abnormal finding of lung field (principal); J44.9 Chronic obstructive pulmonary disease, unspecified
CPT/HCPCS: 94060; 94726; 94729